=== PATIENT | female | born 1940 | race Caucasian/White ===

== ENCOUNTER → 2018-04-30 16:38 | Outpatient (CLI) | payer MEDICARE, BC, SELFPAY ==
[2018-04-30 17:53] LABS: BUN Creatinine Ratio 18.8 (6-22); Blood Urea Nitrogen 15 mg/dL (7-17); Calcium 9.6 mg/dL (8.4-10.2); Carbon Dioxide 32 mmol/L (22-32); Chloride 96 mmol/L (98-107); Estimated Glomerular Filt Rate > 60.0 mL/min (>60); Glucose 94 mg/dL (80-110); HEMOLYSIS < 15 (0-50); Potassium 4.3 mmol/L (3.4-5.1); Sodium 139 mmol/L (137-145)
== END ==
PROVIDERS: Family Provider Family Medicine; PCP Family Medicine; Visit Provider Family Medicine
DX: I10 Essential (primary) hypertension (principal)
CPT/HCPCS: 36415; 80048

== ENCOUNTER → 2018-05-06 13:43 | Outpatient (CLI) | payer MEDICARE, BC, SELFPAY ==
[2018-05-06 17:09] LABS: Calcium 9.6 mg/dL (8.4-10.2)
[2018-05-08 14:18] LABS: Parathyroid Hormone Int 61 pg/mL (14-64)
== END ==
PROVIDERS: PCP Family Medicine; Visit Provider Family Medicine
DX: E21.3 Hyperparathyroidism, unspecified (principal)
CPT/HCPCS: 36415; 82310; 83970

== ENCOUNTER → 2018-06-21 14:54 | Outpatient (CLI) | payer MEDICARE, BC, SELFPAY ==
--- NOTE | 2018-06-21 | DI.MG.S_ITS ---
BILATERAL DIGITAL SCREENING MAMMOGRAM 3D/2D WITH CAD: 06/21/2018 CLINICAL: Routine screening. Comparison is made to exams dated: 02/12/2017 mammogram, 11/07/2015 mammogram, and 10/26/2013 mammogram - [facility]. The tissue of both breasts is heterogeneously dense. This may lower the sensitivity of mammography. Current study was also evaluated with a Computer Aided Detection (CAD) system. There are benign vascular calcifications in both breasts. No significant masses, calcifications, or other findings are seen in either breast. There has been no significant interval change. IMPRESSION: BENIGN There is no mammographic evidence of malignancy. A 1 year screening mammogram is recommended. This exam was interpreted at Station ID: [id number]. NOTE: For mammograms, a report in lay terms will be sent to the patient. Approximately 15% of breast malignancies will not be visualized mammographically. In the management of a palpable breast mass, a negative mammogram must not discourage biopsy of a clinically suspicious lesion. Electronically Signed By: Enio lim/theodore:06/21/2018 16:54:21 letter sent: Normal Exam ACR BI-RADS Category 2: Benign Finding(s) 3342F
== END ==
PROVIDERS: Family Provider Family Medicine; PCP Family Medicine; Visit Provider Family Medicine
DX: Z12.31 Encounter for screening mammogram for malignant neoplasm of breast (principal)
CPT/HCPCS: 77063; 77067

== ENCOUNTER → 2018-07-09 09:43 | Outpatient (CLI) | payer MEDICARE, BC, SELFPAY ==
--- NOTE | 2018-07-09 11:01 | PM.TREADMILL ---
Cardiac Stress Test Report Referral & Results Date Patient Seen: 07/09/18 Requesting provider: Ramirez Mcdowell Indication: Chest pressure Rest ECG: Unremarkable Procedure Note: Today following both written and verbal informed consent the patient was exercised according to a standard Lukas protocol patient went for a total of 4 min 25 sec achieving a maximum heart rate of 189 maximum systolic blood pressure of 182. This is approximately 7.0 METS. Exercise was terminated at this point because of targets having been met. Patient was also given Cardiolite through a previously started Hep-Lock IV by the prior authorization technician approximately 1 minute prior to the cessation of exercise. Patient was tachycardic throughout likely because she held her metoprolol as directed There are no ST-T segment changes identified Normal blood pressure response Functional aerobic impairment rated 0 on the active scale Impression: No evidence of ischemia based on ECG Perfusion imaging to be reported separately Average exercise capacity Please note: Actual ECG tracings can be found in the PACS system.
--- NOTE | 2018-07-12 16:34 | DI.NM.S_ITS ---
DATE OF SERVICE: 07/09/2018 PROCEDURE: Exercise perfusion study. INDICATIONS: Chest pain, shortness of breath with underlying hypertension, hyperlipidemia. RADIOPHARMACEUTICAL: 24.1 mCi technetium-99m Myoview IV was injected at stress and 24.9 mCi technetium-99m Myoview IV was injected at rest. CARDIAC STRESS: Patient underwent exercise perfusion study under the supervision of an attending staff. She walked on Lukas protocol for 4 minutes 25 seconds achieved 119% of target heart rate, normal blood pressure response, 7 METs of workload and 0% functional aerobic impairment. Baseline rhythm was sinus tachycardia. Peak heart rate was about 172 beats per minute with sinus tachycardia. Some nonspecific EKG changes at baseline. No obvious inducible ischemic changes during stress. No new significant arrhythmias. Patient felt fatigue during stress. RAW DATA: There was some breast shadow seen. GATED STUDY: Stress LV ejection fraction 91 and resting LV ejection fraction 79%. No obvious wall motion abnormalities. TID ratio is 0.62, which is within normal limits. Lung/heart ratio is 0.22, which is within normal limits. MYOCARDIAL PERFUSION SCAN: Stress supine, resting supine, and stress prone images revealed normal myocardial perfusion. CONCLUSION: This is a normal myocardial perfusion study. As far as perfusion study is concerned, this is a low-risk myocardial perfusion scan. Linh Casas - Zonia/ doc#: [id number]/job#: [id number] dd: 07/12/2018 16:17:00 dt: 07/12/2018 16:26:00 DICTATING /COPIES TO: Noemi Dexetr MD COPIES MNE: CHRISTINA
== END ==
PROVIDERS: Family Provider Family Medicine; PCP Family Medicine; Visit Provider Internal Medicine
DX: R07.89 Other chest pain (principal); R00.0 Tachycardia, unspecified; I10 Essential (primary) hypertension
CPT/HCPCS: 78452; 93016; 93017; 93018; A9502

== ENCOUNTER → 2019-02-07 14:16 | Outpatient (CLI) | payer MEDICARE, BC, SELFPAY ==
[2019-02-07 15:22] LABS: Blood Urea Nitrogen 20 mg/dL (7-17); Calcium 9.3 mg/dL (8.4-10.2); Carbon Dioxide 30 mmol/L (22-32); Chloride 98 mmol/L (98-107); Estimated Glomerular Filt Rate > 60.0 mL/min (>60); Glucose 97 mg/dL (80-110); HEMOLYSIS < 15 (0-50); Potassium 4.8 mmol/L (3.4-5.1); Sodium 138 mmol/L (137-145)
== END ==
PROVIDERS: PCP Family Medicine; Visit Provider Family Medicine
DX: I10 Essential (primary) hypertension (principal); Z79.891 Long term (current) use of opiate analgesic
CPT/HCPCS: 36415; 80048

== ENCOUNTER → 2019-09-03 12:11 | Outpatient (CLI) | payer MEDICARE, BC, SELFPAY ==
--- NOTE | 2019-09-03 | DI.MG.S_ITS ---
BILATERAL DIGITAL SCREENING MAMMOGRAM 3D/2D WITH CAD: 09/03/2019 CLINICAL: Routine screening. Comparison is made to exams dated: 06/21/2018 mammogram, 02/12/2017 mammogram, and 11/07/2015 mammogram - [facility]. The tissue of both breasts is heterogeneously dense. This may lower the sensitivity of mammography. Current study was also evaluated with a Computer Aided Detection (CAD) system. There are benign calcifications in both breasts. There also are benign vascular calcifications in both breasts. No significant masses, calcifications, or other findings are seen in either breast. There has been no significant interval change. IMPRESSION: There is no mammographic evidence of malignancy. A 1 year screening mammogram is recommended. This exam was interpreted at Station ID: [id number]. NOTE: For mammograms, a report in lay terms will be sent to the patient. Approximately 15% of breast malignancies will not be visualized mammographically. In the management of a palpable breast mass, a negative mammogram must not discourage biopsy of a clinically suspicious lesion. Electronically Signed By: Milli cedeno/theodore:09/05/2019 08:55:54 letter sent: Normal Exam ACR BI-RADS Category 2: Benign Finding(s) 3342F
== END ==
PROVIDERS: PCP Family Medicine; Visit Provider Family Medicine
DX: Z12.31 Encounter for screening mammogram for malignant neoplasm of breast (principal)
CPT/HCPCS: 77063; 77067

== ENCOUNTER → 2019-11-25 09:43 | Outpatient (CLI) | payer MEDICARE, BC, SELFPAY | PROVIDERS: PCP Family Medicine; Visit Provider Family Medicine | DX: Z13.820 Encounter for screening for osteoporosis (principal); M85.852 Other specified disorders of bone density and structure, left thigh; Z78.0 Asymptomatic menopausal state; E21.3 Hyperparathyroidism, unspecified; Z82.62 Family history of osteoporosis; Z90.722 Acquired absence of ovaries, bilateral | CPT/HCPCS: 77080 ==

== ENCOUNTER → 2021-03-14 08:41 | Outpatient (CLI) | payer MEDICARE, BC, SELFPAY ==
--- NOTE | 2021-03-14 09:23 | DI.RAD.S_ITS ---
PROCEDURE: XR SHOULDER RT MIN 2V INDICATIONS: right shoulder pain TECHNIQUE: 3 views of the shoulder were acquired. COMPARISON: None. FINDINGS: Bones: No fractures or dislocations. No suspicious bony lesions. Visualized ribs appear intact. Soft tissues: No suspicious soft tissue calcifications. IMPRESSION: Unremarkable right shoulder radiographs Dictated by: Jayson Yung M.D. on 03/14/2021 at 11:21 Approved by: Jayson Yung M.D. on 03/14/2021 at 11:33
[2021-03-14 09:47] LABS: Add Manual Diff / Slide Review NO; Basophils Absolute Auto 0 /uL (0-100); Basophils Percent Auto 0.8 % (0-2); Eosinophils Absolute Auto 100 /uL (0-450); Eosinophils Percent Auto 2.2 % (2-4); Hematocrit 39.6 % (36-46); Hemoglobin 13.2 g/dL (12.0-16.0); Lymphocytes Absolute Auto 1200 /uL (1100-4500); Lymphocytes Percent Auto 20.9 % (25-40); Mean Corpuscular HGB Conc 33.2 % (30-36); Mean Corpuscular Hemoglobin 30.4 PG (26-34); Mean Corpuscular Volume 91.5 fL (80-100); Monocytes Absolute Auto 300 /uL (0-900); Monocytes Percent Auto 5.6 % (3-14); Neutrophils Absolute Auto 4200 /uL (1500-7000); Neutrophils Percent Auto 70.5 % (50-75); Platelet Count 275 X10^3/uL (150-400); Red Blood Cell Count 4.33 X10^6/uL (4.0-5.2); Red Cell Distribution Width 14.2 % (11.6-14.8); White Blood Cell Count 5.9 X10^3/uL (4.5-11.0)
[2021-03-14 10:02] LABS: Alanine Aminotransferase 30 IU/L (<35); Albumin 4.4 g/dL (3.5-5.0); Albumin Globulin Ratio 1.5 (1.0-2.8); Alkaline Phosphatase 66 U/L (38-126); Aspartate Aminotransferase 36 IU/L (14-36); Bilirubin Total 0.6 mg/dL (0.2-1.3); Blood Urea Nitrogen 19 mg/dL (7-17); Calcium 9.7 mg/dL (8.4-10.2); Carbon Dioxide 31 mmol/L (22-32); Chloride 101 mmol/L (98-107); Cholesterol 164 mg/dL (140-199); Estimated Glomerular Filt Rate > 60.0 mL/min (>60); Glucose 106 mg/dL (80-110); HDL Cholesterol 77 mg/dL (40-60); HEMOLYSIS < 15 (0-50); LDL Cholesterol Calculated 72 mg/dL (<100); Potassium 3.9 mmol/L (3.4-5.1); Sodium 139 mmol/L (137-145); Total Protein 7.4 g/dL (6.3-8.2); Triglycerides 76 mg/dL (35-150)
== END ==
PROVIDERS: PCP Family Medicine; Referring Provider Family Medicine; Visit Provider Family Medicine
DX: E27.49 Other adrenocortical insufficiency (principal); E78.5 Hyperlipidemia, unspecified; I10 Essential (primary) hypertension; M25.511 Pain in right shoulder
CPT/HCPCS: 36415; 73030; 80053; 80061; 85025

== ENCOUNTER → 2021-09-12 12:40 | Outpatient (CLI) | payer MEDICARE, BC, SELFPAY ==
[2021-09-12 13:23] LABS: Blood Urea Nitrogen 20 mg/dL (7-17); Calcium 9.5 mg/dL (8.4-10.2); Carbon Dioxide 32 mmol/L (22-32); Chloride 98 mmol/L (98-107); Estimated Glomerular Filt Rate > 60.0 mL/min (>60); Glucose 107 mg/dL (80-110); HEMOLYSIS < 15 (0-50); Potassium 4.3 mmol/L (3.4-5.1); Sodium 138 mmol/L (137-145)
== END ==
PROVIDERS: PCP Family Medicine; Referring Provider Family Medicine; Visit Provider Family Medicine
DX: E27.49 Other adrenocortical insufficiency (principal)
CPT/HCPCS: 36415; 80048

== ENCOUNTER → 2021-12-25 08:32 | Outpatient (CLI) | payer MEDICARE, BC, SELFPAY ==
[2021-12-25 09:05] LABS: Appearance Urine UA CLEAR; Bilirubin Urine UA NEGATIVE (NEGATIVE); Color Urine UA YELLOW; Glucose Urine UA NEGATIVE (Negative); Ketones Urine UA NEGATIVE (NEGATIVE); Leukocyte Esterase Urine UA TRACE (NEGATIVE); Nitrite Urine UA NEGATIVE (Negative); Occult Blood Urine UA TRACE-INTACT (Negative); Protein Urine UA NEGATIVE (Negative); Urobilinogen Urine UA 0.2 E.U./dL (0.2)
[2021-12-25 09:13] LABS: Add Manual Diff / Slide Review NO; Basophils Absolute Auto 0 /uL (0-100); Basophils Percent Auto 0.8 % (0-2); Eosinophils Absolute Auto 200 /uL (0-450); Eosinophils Percent Auto 2.8 % (2-4); Hematocrit 38.6 % (36-46); Hemoglobin 12.9 g/dL (12.0-16.0); Lymphocytes Absolute Auto 1600 /uL (1100-4500); Lymphocytes Percent Auto 28.4 % (25-40); Mean Corpuscular HGB Conc 33.3 % (30-36); Mean Corpuscular Hemoglobin 30.6 PG (26-34); Monocytes Absolute Auto 400 /uL (0-900); Neutrophils Absolute Auto 3400 /uL (1500-7000); Platelet Count 328 X10^3/uL (150-400); Red Cell Distribution Width 14.1 % (11.6-14.8); White Blood Cell Count 5.6 X10^3/uL (4.5-11.0)
[2021-12-25 09:17] LABS: Bacteria Urine Occasional (0-1); Culture Indicated Urine Specimen Cultured; RBC Urine 0-1/HPF (0-5/HPF); WBC Urine 0-1/HPF (0-5/HPF)
[2021-12-25 09:30] LABS: Albumin 4.5 g/dL (3.5-5.0); BUN Creatinine Ratio 24.7 (6-22); Blood Urea Nitrogen 19 mg/dL (7-17); Calcium 9.6 mg/dL (8.4-10.2); Carbon Dioxide 35 mmol/L (22-32); Chloride 100 mmol/L (98-107); Estimated Glomerular Filt Rate > 60.0 mL/min (>60); Glucose 104 mg/dL (80-110); HEMOLYSIS < 15 (0-50); Phosphorous 3.5 mg/dL (2.8-4.1); Potassium 4.5 mmol/L (3.4-5.1); Sodium 137 mmol/L (137-145)
[2021-12-25 09:55] LABS: Creatinine Urine Random 51.4 mg/dL; Protein (Total) Urine Random 14 mg/dL (0-12); Protein Creatinine Ratio Urine 0.27 GRAM/24H
[2021-12-25 10:00] LABS: Microalbumi Creatinin Ratio Ur 40.8 ug/mg CR (<30); Microalbumin Urine Random 2.1 mg/dL (0-1.6)
== END ==
PROVIDERS: PCP Family Medicine; Referring Provider Internal Medicine Nephrology; Visit Provider Internal Medicine Nephrology
DX: I10 Essential (primary) hypertension (principal)
CPT/HCPCS: 36415; 80069; 81001; 82043; 82570; 84156; 85025; 87086

== ENCOUNTER → 2022-01-29 12:30 | Outpatient (CLI) | payer MEDICARE, BC, SELFPAY ==
[2022-01-29 14:30] LABS: Hematocrit 37.9 % (36-46); Hemoglobin 12.8 g/dL (12.0-16.0)
[2022-01-29 15:07] LABS: BUN Creatinine Ratio 21.8 (6-22); Blood Urea Nitrogen 17 mg/dL (7-17); Calcium 9.5 mg/dL (8.4-10.2); Carbon Dioxide 34 mmol/L (22-32); Chloride 94 mmol/L (98-107); Estimated Glomerular Filt Rate > 60.0 mL/min (>60); Glucose 94 mg/dL (80-110); HEMOLYSIS < 15 (0-50); Magnesium 2.1 mg/dL (1.6-2.3); Potassium 3.8 mmol/L (3.4-5.1); Sodium 134 mmol/L (137-145)
[2022-01-29 16:09] LABS: Creatinine Urine Random 51.6 mg/dL; Protein (Total) Urine Random 9 mg/dL (0-12); Protein Creatinine Ratio Urine 0.17 GRAM/24H
== END ==
PROVIDERS: PCP Family Medicine; Referring Provider Internal Medicine Nephrology; Visit Provider Internal Medicine Nephrology
DX: I10 Essential (primary) hypertension (principal)
CPT/HCPCS: 36415; 80048; 82570; 83735; 84156; 85014; 85018

== ENCOUNTER → 2022-02-18 10:38 | Outpatient (CLI) | payer MEDICARE, BC, SELFPAY ==
[2022-02-18 13:14] LABS: BUN Creatinine Ratio 19.4 (6-22); Blood Urea Nitrogen 14 mg/dL (7-17); Calcium 9.3 mg/dL (8.4-10.2); Carbon Dioxide 33 mmol/L (22-32); Chloride 96 mmol/L (98-107); Estimated Glomerular Filt Rate > 60.0 mL/min (>60); Glucose 90 mg/dL (80-110); HEMOLYSIS < 15 (0-50); Potassium 3.5 mmol/L (3.4-5.1); Sodium 134 mmol/L (137-145)
== END ==
PROVIDERS: PCP Family Medicine; Referring Provider Internal Medicine Nephrology; Visit Provider Internal Medicine Nephrology
DX: I10 Essential (primary) hypertension (principal)
CPT/HCPCS: 36415; 80048

== ENCOUNTER → 2022-07-04 11:22 | Outpatient (CLI) | payer MEDICARE, BC, SELFPAY ==
[2022-07-04 12:01] LABS: Add Manual Diff / Slide Review NO; Basophils Absolute Auto 0 /uL (0-100); Basophils Percent Auto 0.8 % (0-2); Eosinophils Absolute Auto 0 /uL (0-450); Eosinophils Percent Auto 0.3 % (2-4); Hemoglobin 12.5 g/dL (12.0-16.0); Lymphocytes Absolute Auto 700 /uL (1100-4500); Lymphocytes Percent Auto 12.3 % (25-40); Mean Corpuscular HGB Conc 33.7 % (30-36); Mean Corpuscular Hemoglobin 30.8 PG (26-34); Mean Corpuscular Volume 91.2 fL (80-100); Monocytes Absolute Auto 300 /uL (0-900); Monocytes Percent Auto 5.7 % (3-14); Neutrophils Absolute Auto 4500 /uL (1500-7000); Neutrophils Percent Auto 80.9 % (50-75); Platelet Count 399 X10^3/uL (150-400); Red Blood Cell Count 4.06 X10^6/uL (4.0-5.2); White Blood Cell Count 5.5 X10^3/uL (4.5-11.0)
[2022-07-04 13:06] LABS: Alanine Aminotransferase 23 IU/L (<35); Albumin 4.5 g/dL (3.5-5.0); Albumin Globulin Ratio 1.8 (1.0-2.8); Alkaline Phosphatase 63 U/L (38-126); Aspartate Aminotransferase 29 IU/L (14-36); BUN Creatinine Ratio 17.1 (6-22); Bilirubin Total 0.6 mg/dL (0.2-1.3); Blood Urea Nitrogen 13 mg/dL (7-17); Calcium 9.4 mg/dL (8.4-10.2); Carbon Dioxide 33 mmol/L (22-32); Chloride 92 mmol/L (98-107); Cholesterol 170 mg/dL (140-199); Estimated Glomerular Filt Rate > 60 mL/min (>60); Globulin 2.5 g/dL (1.7-4.1); Glucose 89 mg/dL (80-110); HDL Cholesterol 107 mg/dL (40-60); HEMOLYSIS < 15 (0-50); LDL Cholesterol Calculated 53 mg/dL (<100); Potassium 3.9 mmol/L (3.4-5.1); Sodium 132 mmol/L (137-145); Triglycerides 50 mg/dL (35-150)
== END ==
PROVIDERS: PCP Family Medicine; Referring Provider Family Medicine; Visit Provider Family Medicine
DX: R07.9 Chest pain, unspecified (principal)
CPT/HCPCS: 36415; 80053; 80061; 85025

== ENCOUNTER → 2022-07-17 09:48 | Outpatient (CLI) | payer MEDICARE, BC, SELFPAY ==
--- NOTE | 2022-07-17 09:50 | DI.NM.S_ITS ---
PROCEDURE: NM ROZINA PERF SPECT REST & STR Rest and exercise myocardial perfusion SPECT with gated imaging and ejection fraction RADIOPHARMACEUTICAL: 12.3 mCi Tc-99m sestamibi IV at rest and 24.7 mCi Tc-99m sestamibi IV at peak exercise. A 9-ier-exyrgfim was performed. INDICATIONS: Chest pain,pressure, HTN TECHNIQUE: Radiopharmaceutical was injected at peak stress test, and also at rest. SPECT images were obtained. SPECT myocardial perfusion images were displayed in short axis, horizontal long axis, and vertical long axis views. Gated images were reviewed using [employer] software. COMPARISON: None. CARDIAC STRESS: A standard Lukas treadmill exercise tolerance test was performed by the patient under the supervision of an attending staff. The patient exercised for 5 minutes and 05 seconds; 7.0 METS; functional aerobic impairment (LEONOR) is -5% %. Hemodynamic data: There is normal blood pressure and heart rate response to exercise stress. Patient achieved 121% of maximum predicted heart rate at peak exercise. Symptoms: Patient denied chest pain during exercise. EKG: No diagnostic EKG changes of ischemia; no ectopy. FINDINGS: Raw data: There is good myocardial labeling by radiotracer. No significant motion artifacts. Kukb-jt-ghava ratio is 0.49 (normal is less than 0.38 for sestamibi tracer, and less than 0.50 for thallium tracer). Left ventricle function: Gated images demonstrate normal left ventricle wall thickening. No segmental wall motion abnormality. No transient ischemic dilation; TID is 0.92 (normal less than 1.3). The left ventricle resting end-diastolic volume is 74 mL. Left ventricle stress ejection fraction is >75%; normal values are above 45%. Myocardial perfusion: There is normal distribution of activity in the left and right ventricular myocardium. No fixed or reversible perfusion defects. IMPRESSION: Low risk study. No evidence of exercise-induced ischemia on ECG or SPECT imaging. Fair exercise capacity. Hyperdynamic left ventricular function. Dictated by: Maribeth Ty D.O. on 07/18/2022 at 16:46 Approved by: aMribeth Ty D.O. on 07/18/2022 at 16:50
[2022-07-17 11:13] LABS: COVID19 -Nasal RAPID Negative (Negative)
--- NOTE | 2022-07-17 14:38 | PM.TREADMILL ---
Cardiac Stress Test Report Referral & Results Date Patient Seen: 07/17/22 Requesting provider: Sherron Brown Indication: Chest discomfort Rest ECG: Unremarkable, maybe minimally tachycardic Procedure Note: Today following both written and verbal informed consent the patient was exercised according to a standard Lukas protocol patient went for a total of 5 minutes 5 seconds achieving a maximum heart rate of 169 maximum systolic blood pressure of 176. This is approximately 7.0 METS. Exercise was terminated at this point because of targets were met. Patient was also given Cardiolite through a previously started Hep-Lock IV by the diagnostic imaging staff approximately 1 minute prior to the cessation of exercise. Patient was somewhat tachycardic throughout likely secondary to the temporary discontinuation of her beta-arleen therapy. There were no symptoms associated with this. No ST-T segment changes Functional aerobic impairment rates about-5% on the active scale or 105% of normal Occasional PAC noticed mostly in recovery Impression: No evidence of ischemia. Better than average exercise capacity. Please see perfusion imaging report as well for details regarding possible ischemia Mild tachycardia likely related to interruption of beta-arleen therapy Please note: Actual ECG tracings can be found in the PACS system.
== END ==
PROVIDERS: PCP Family Medicine; Referring Provider Family Medicine; Visit Provider Family Medicine
DX: R07.89 Other chest pain (principal); I10 Essential (primary) hypertension; Z20.822 Contact with and (suspected) exposure to COVID-19
CPT/HCPCS: 78452; 87635; 93016; 93017; 93018; A9502

== ENCOUNTER → 2022-12-23 11:50 | Outpatient (CLI) | payer MEDICARE, BC, SELFPAY ==
--- NOTE | 2022-12-23 11:52 | DI.RAD.S_ITS ---
PROCEDURE: XR THORACIC SPINE 3V INDICATIONS: known disc disease, pain TECHNIQUE: 3 views of the thoracic spine were acquired. COMPARISON: None. FINDINGS: Bones: No fractures or dislocations. No suspicious bony lesions. Convex left scoliosis of the visualized lumbar spine. Moderate degenerative disc changes noted throughout the thoracic spine. Moderate lower and moderate midthoracic spine facet hypertrophy. 12 pairs of ribs are noted, and appear intact where visualized. Soft tissues: No paravertebral stripe thickening. IMPRESSION: 1. Multilevel degenerative disc disease. 2. Multilevel facet arthropathy. 3. No fracture. No acute osseous lesion. If symptoms and/or clinical suspicion for pathology persists, evaluation with MRI should be considered for further assessment. Dictated by: Mile Rendon MD, PhD on 12/23/2022 at 13:18 Approved by: Mile Rendon MD, PhD on 12/23/2022 at 13:19
--- NOTE | 2022-12-23 11:52 | DI.RAD.S_ITS ---
PROCEDURE: XR LUMBAR SPINE 2-3V INDICATIONS: known disc disease, pain TECHNIQUE: 3 views of the lumbar spine were acquired. COMPARISON: None. FINDINGS: Bones: 5 mnv-rfs-gtsvqzl vertebrae are present. There is grade 1 L5-S1 anterolisthesis. There is convex left scoliosis. Moderate degenerative disc changes noted throughout the lumbar spine. Moderate facet hypertrophy noted throughout the lumbar spine. No vertebral body compression fractures. No suspicious bony lesions. Soft tissues: Overlying bowel gas pattern is normal. No suspicious soft tissue calcifications. IMPRESSION: 1. Multilevel degenerative disc disease. 2. Multilevel facet arthropathy. 3. No fracture. No acute osseous lesion. If symptoms and/or clinical suspicion for pathology persists, evaluation with MRI should be considered for further assessment. Dictated by: Mlie Rendon MD, PhD on 12/23/2022 at 13:17 Approved by: Mile Rendon MD, PhD on 12/23/2022 at 13:18
== END ==
PROVIDERS: PCP Family Medicine; Referring Provider Family Medicine; Visit Provider Family Medicine
DX: M51.36 Other intervertebral disc degeneration, lumbar region (principal); M51.34 Other intervertebral disc degeneration, thoracic region; M47.816 Spondylosis without myelopathy or radiculopathy, lumbar region; M47.814 Spondylosis without myelopathy or radiculopathy, thoracic region; M54.9 Dorsalgia, unspecified
CPT/HCPCS: 72072; 72100

== ENCOUNTER → 2023-04-01 12:06 | Outpatient (CLI) | payer MEDICARE, BC, SELFPAY ==
[2023-04-01 13:00] LABS: COVID-19 CEPHEID 4-PLEX PCR Negative (Negative); Influenza A - CEPHEID Flu A NEGATIVE (NEGATIVE); Influenza B - CEPHEID Flu B NEGATIVE (NEGATIVE); Respiratory Syncytial Virus Negative (Negative)
== END ==
PROVIDERS: PCP Family Medicine; Visit Provider Physician Assistant
DX: R05.1 Acute cough (principal); R09.89 Other specified symptoms and signs involving the circulatory and respiratory systems; R53.83 Other fatigue
CPT/HCPCS: 0241U

== ENCOUNTER → 2023-04-20 11:20 | Outpatient (CLI) | payer MEDICARE, BC, SELFPAY ==
[2023-04-20 13:22] LABS: BUN Creatinine Ratio 17.8 (6-22); Blood Urea Nitrogen 13 mg/dL (7-17); Calcium 9.4 mg/dL (8.4-10.2); Carbon Dioxide 33 mmol/L (22-32); Chloride 92 mmol/L (98-107); Estimated Glomerular Filt Rate > 60 mL/min (>60); Glucose 111 mg/dL (80-110); HEMOLYSIS < 15 (0-50); Potassium 4.3 mmol/L (3.4-5.1); Sodium 132 mmol/L (137-145)
[2023-04-21 10:55] LABS: Creatinine Urine Random 19.1 mg/dL; Protein (Total) Urine Random 12 mg/dL (0-12); Protein Creatinine Ratio Urine 0.62 GRAM/24H
== END ==
PROVIDERS: PCP Family Medicine; Referring Provider Internal Medicine Nephrology; Visit Provider Internal Medicine Nephrology
DX: I10 Essential (primary) hypertension (principal)
CPT/HCPCS: 36415; 80048; 82570; 84156

== ENCOUNTER 2023-07-23 07:30 | Emergency (ER) | payer MEDICARE, BC, SELFPAY ==
[2023-07-23] VITALS (15 sets, daily range): BP systolic 152–188; BP diastolic 63–81; PULSE 76–87; RESP 12–22; TEMP 37.6; O2SAT 98–100; BMI 20.5
--- NOTE | 2023-07-23 07:43 | ED.GENADULT ---
HPI - General Adult General Chief complaint: Chest Pain Stated complaint: chest pain, nausea, severe headache Time Seen by Provider: 07/23/23 07:32 History of Present Illness HPI narrative: 82-year-old female with history of hypertension presents by private vehicle from home for generalized body aches, nausea, headache. Patient went to bed in her usual state of health and woke up with symptoms. She states that she also had 3 episodes of loose stools, which is unusual for her. Unknown sick contacts. No medications taken prior to arrival. When specifically asked about chest pain patient does endorse chest pain, however her main concern is her body pain, headache, and nausea. Related Data Home Medications Medication Instructions Recorded Confirmed aspirin 81 mg tablet,delayed 81 mg PO QDAY ##0 09/11/17 06/18/23 release acetaminophen 500 mg capsule 500 mg PO Q6H PRN 08/12/18 06/18/23 cetirizine 10 mg tablet (Zyrtec) 10 mg PO DAILY PRN allergy symptoms 06/18/23 06/18/23 Previous Rx's Medication Instructions Recorded chlorthalidone 25 mg tablet 25 mg PO .QOD #30 tabs 07/04/22 olmesartan 20 mg tablet 20 mg PO DAILY #30 tabs 07/04/22 simvastatin 40 mg tablet See Rx Instructions .Route 08/19/22 .COMPLEX #90 tabs omeprazole 20 mg capsule,delayed See Rx Instructions .Route 11/25/22 release .COMPLEX #180 caps fludrocortisone 0.1 mg tablet See Rx Instructions .Route 04/09/23 .COMPLEX #23 tabs hydrocodone 7.5 mg-acetaminophen 1 tab PO HS #30 tabs 06/18/23 325 mg tablet amlodipine 5 mg tablet 5 mg PO DAILY #30 tabs 07/23/23 hydrocodone 7.5 mg-acetaminophen 1 tab PO BEDTIME PRN pain #14 tabs 07/23/23 325 mg tablet Allergies Allergy/AdvReac Type Severity Reaction Status Date / Time amlodipine Allergy Mild SWELLING Verified 04/01/23 11:30 IN LEGS codeine [CODEINE] Allergy Mild confusion Verified 04/01/23 11:30 sucralfate AdvReac Intermediate vomiting,na Verified 04/01/23 11:30 usea Anesthetics - Amide Type - AdvReac Mild VOMITING Verified 04/01/23 11:30 Select A [Anesthetics - Amide Type] Anesthetics - Ingrid Type- AdvReac Mild VOMITING Verified 04/01/23 11:30 Parabens [Anesthetics - Ingrid Type] diphtheria,pertussis AdvReac FEVER, Verified 04/01/23 11:30 (acellular),te CHILLS, [From Adacel(Tdap DIARRHEA, Adolesn/Adult)(PF)] TERRIBLE HEADACHE Review of Systems Review of Systems Narrative: CONSTITUTIONAL-reports: Malaise Denies: fever, chills HEENT- Denies: sore throat, nosebleed, vision changes RESPIRATORY- Denies: shortness of breath, cough, wheezing CARDIAC- Denies: chest pain, edema, orthopnea GI-reports: Nausea, diarrhea Denies: abdominal pain, vomiting, constipation - Denies: frequency, dysuria, hematuria, flank pain MSK- Denies: extremity pain, extremity swelling, joint pain, joint swelling SKIN- Denies: rash, itching, burn, swelling NEUROLOGICAL-reports: Headache Denies: numbness, weakness, dizziness PSYCHIATRIC- Denies: anxiety, depression, suicidal ideation, homicidal ideation Patient History Medical History (Updated 07/23/23 @ 09:27 by Sumi Adam MD) Adrenal insufficiency Arthritis, climacteric, multiple joints Chicken pox (1947) Chronic back pain (1984) Fibromyalgia (1984) Hayfever (1965) Hearing loss (2009) Hemorrhoids (1964) Hyperlipidemia Hyperparathyroidism (02/11/16) Hyperparathyroidism (2013) Hypertension (1984) Hyperthyroidism (2013) Hyporeninemic hypoaldosteronism Lumbosacral radiculopathy due to degenerative joint disease of spine (2015) Measles (1948) Migraines (1953) Osteopenia (2005) Osteoporosis Surgical History Anesthesia complication H/O parathyroidectomy (~2013) History of eye surgery (2007) History of eye surgery (2006) Status post hysterectomy (1981) Family History Brother Age: 61 Heart disease Father Hypertension High cholesterol Mother Mental health problem Osteopenia Alzheimer's disease Sister Age: 79 Heart disease High cholesterol Osteopenia Heart valve problem Grandfather No problems noted. Grandmother No problems noted. Grandfather No problems noted. Grandmother MVA (motor vehicle accident) Sister History of back problems Sister History of back problems Social History marital status: household members: spouse lives independently: Yes education level: college occupational status: other Smoking Status: Never smoker alcohol intake: never substance use type: does not use Smoking Status: Never smoker Exam Narrative Exam Narrative: Const: Well-nourished, Well-developed, appears stated age Eyes: PERRL, EOMI, conjunctiva normal ENT: Atraumatic, dentition normal, mucous membranes moist Cardiac: regular rate, regular rhythm RESP: unlabored, clear bilaterally, no wheezing GI: Atraumatic, nontender, nondistended, no rebound, no guarding MSK: Atraumatic, full range of motion, pulses equal Skin: Warm, Dry, intact, no rashes Neuro: AO x3, CN II-XII grossly intact, moves all extremities Psych: affect normal, mood normal, not suicidal, not homicidal Initial Vital Signs Initial Vital Signs: Vital Signs Pulse Rate 87 07/23/23 07:37 Respiratory Rate 12 07/23/23 07:37 Pulse Oximetry 98 07/23/23 07:37 Course Course Course Narrative: Nontoxic appearing patient with generalized symptoms. Does endorse chest pain, however her main concern is her body pain and nausea. Hemodynamically stable, initially hypertensive, however patient endorses she has not taken her morning medications and after allowing to rest in the emergency department her blood pressure normalized. Orders Ordered: ED Orders 07/23/23 07:40 COVID19 -Nasal RAPID Stat 07/23/23 07:41 EKG-12 Lead Stat 07/23/23 07:49 Chest [XR chest 1V] Stat 07/23/23 07:55 CBC Auto Diff [Complete Blood Count AUTO DIFF] Stat CMP [Comprehensive Metabolic Panel] Stat Lipase Stat Trop I [Troponin I] Stat Discontinued Medications Acetaminophen/Butalbital/Caffeine (Butalb/Apap/Caffeine 50/325/40 Tablet) 1 each PO NOW ONE Stop: 07/23/23 08:15 Last Admin: 07/23/23 08:56 Dose: 1 each Documented By: JON Sodium Chloride (Normal Saline 0.9%) 1,000 mls @ 1,000 mls/hr IV BOLUS PRN PRN Reason: Fluid replacement Last Admin: 07/23/23 09:05 Dose: 1,000 mls/hr Documented By: JON Ondansetron HCl (Ondansetron 4 Mg/2 Ml Inj) 4 mg IV NOW ONE Stop: 07/23/23 07:39 Last Admin: 07/23/23 08:08 Dose: 4 mg Documented By: JON Reevaluation(s) Reevaluation #1: Laboratory work is significant for mild hyponatremia. Patient's baseline appears to be 132, today it is 127. Patient does take chlorthalidone which could be contributory to her hyponatremia. Patient positive for COVID-19. EKG is normal sinus rhythm without ischemic findings, troponin undetectable. Chest x-ray shows chronic findings. Patient informed of her lab and imaging results. She was informed of her COVID positive status and her hyponatremia. Patient is pending replacement of her primary care physician, in the interim I recommended that she with hold her chlorthalidone until following up with the primary care physician. We will change to amlodipine. Patient counseled that she may take Tylenol and Motrin as needed for her symptoms and she was advised to make sure she drinks plenty of fluids in order to stay hydrated. Patient also requested a short refill of her pain medications, her usual pharmacy [facility] has reported a shortage and recommended that she go to a clinic to see if a provider would order her a refill. ED return precautions discussed. Patient expressed understanding of the plan and is in agreement at this time. All questions answered at the time of discharge. Vital Signs Vital signs: Vital Signs - 8 hr 07/23/23 07:40 07/23/23 07:37 07/23/23 07:50 Temperature 99.7 F H Pulse Rate 78 87 Respiratory Rate 18 12 Blood Pressure 188/79 H 188/79 H Pulse Oximetry 99 98 Oxygen Delivery Method Room Air 07/23/23 07:50 07/23/23 08:00 07/23/23 08:00 Temperature Pulse Rate 80 79 Respiratory Rate 18 20 Blood Pressure 188/81 H Pulse Oximetry 100 98 Oxygen Delivery Method 07/23/23 08:10 07/23/23 08:10 07/23/23 08:20 Temperature Pulse Rate 81 79 Respiratory Rate 22 15 Blood Pressure 174/76 H Pulse Oximetry 99 99 Oxygen Delivery Method 07/23/23 08:20 07/23/23 08:30 07/23/23 08:30 Temperature Pulse Rate 78 Respiratory Rate 15 Blood Pressure 162/63 H 171/77 H Pulse Oximetry 99 Oxygen Delivery Method 07/23/23 08:40 07/23/23 08:40 07/23/23 08:50 Temperature Pulse Rate 82 Respiratory Rate 15 Blood Pressure 164/66 H 156/70 H Pulse Oximetry 99 Oxygen Delivery Method 07/23/23 08:50 07/23/23 09:00 07/23/23 09:00 Temperature Pulse Rate 79 76 Respiratory Rate 15 18 Blood Pressure 152/70 H Pulse Oximetry 99 98 Oxygen Delivery Method 07/23/23 09:10 07/23/23 09:10 07/23/23 09:20 Temperature Pulse Rate 80 Respiratory Rate 17 Blood Pressure 156/72 H 167/76 H Pulse Oximetry 99 Oxygen Delivery Method 07/23/23 09:20 07/23/23 09:30 07/23/23 09:30 Temperature Pulse Rate 78 78 Respiratory Rate 21 12 Blood Pressure 167/65 H Pulse Oximetry 99 99 Oxygen Delivery Method 07/23/23 09:40 07/23/23 09:40 07/23/23 09:50 Temperature Pulse Rate 78 Respiratory Rate 15 Blood Pressure 167/72 H 171/77 H Pulse Oximetry 99 Oxygen Delivery Method 07/23/23 09:50 Temperature Pulse Rate 76 Respiratory Rate 18 Blood Pressure Pulse Oximetry 100 Oxygen Delivery Method Medical Decision Making Differential Diagnosis Differential Diagnosis: Viral syndrome, gastroenteritis, electrolyte imbalance Lab Data 07/23/23 07:55 07/23/23 07:55 Labs: Lab Results 07/23/23 07/23/23 07/23/23 Range/Units 07:40 07:55 07:55 WBC 3.5 L (4.5-11.0) X10^3/uL RBC 3.88 L (4.0-5.2) X10^6/uL Hgb 12.3 (12.0-16.0) g/dL Hct 35.4 L (36-46) % MCV 91.2 (80-100) fL MCH 31.8 (26-34) PG MCHC 34.8 (30-36) % RDW 13.5 (11.6-14.8) % Plt Count 281 (150-400) X10^3/uL Neut % (Auto) 74.7 (50-75) % Lymph % (Auto) 13.9 L (25-40) % Davison % (Auto) 10.3 (3-14) % Eos % (Auto) 0.4 L (2-4) % Baso % (Auto) 0.7 (0-2) % Neut # (Auto) 2700 (5376-0750) /uL Lymph # (Auto) 500 L (5364-6714) /uL Davison # (Auto) 400 (0-900) /uL Eos # (Auto) 0 (0-450) /uL Baso # (Auto) 0 (0-100) /uL Sodium 127 L (137-145) mmol/L Potassium 3.3 L (3.4-5.1) mmol/L Chloride 89 L (98-107) mmol/L Carbon Dioxide 29 (22-32) mmol/L BUN 10 (7-17) mg/dL Creatinine 0.65 (0.52-1.04) mg/dL Estimated GFR > 60 (>60) mL/min BUN/Creatinine Ratio 15.4 (6-22) Glucose 112 H (80-110) mg/dL Calcium 9.0 (8.4-10.2) mg/dL Total Bilirubin 0.4 (0.2-1.3) mg/dL AST 36 (14-36) IU/L ALT 26 (<35) IU/L Alkaline Phosphatase 68 (38-126) U/L Troponin I < 0.012 (0.01-0.034) ng/mL Total Protein 7.2 (6.3-8.2) g/dL Albumin 4.5 (3.5-5.0) g/dL Globulin 2.7 (1.7-4.1) g/dL Albumin/Globulin Ratio 1.7 (1.0-2.8) Lipase 113 (23-300) U/L SARS-CoV-2 (PCR) Positive H (Negative) Discharge Plan Departure Patient Disposition: Home Clinical Impression: COVID, Myalgia, Nausea, Hyponatremia Instructions: DI for Hyponatremia, COVID-19 Activity Restrictions/Additional Instructions: Stop taking your chlorthalidone. Your blood pressure medication has been changed to amlodipine. You may take this with olmesartan. Please follow-up with your primary care physician. If you feel worse please return to the emergency department for repeat evaluation. Prescriptions: New amlodipine 5 mg tablet 5 mg PO DAILY Qty: 30 0RF hydrocodone-acetaminophen 7.5-325 mg tablet 1 tab PO BEDTIME PRN (Reason: pain) Qty: 14 0RF No Action olmesartan 20 mg tablet 20 mg PO DAILY Qty: 30 0RF chlorthalidone 25 mg tablet 25 mg PO .QOD Qty: 30 0RF cetirizine [Zyrtec] 10 mg tablet 10 mg PO DAILY PRN (Reason: allergy symptoms) hydrocodone-acetaminophen 7.5-325 mg tablet 1 tab PO HS Qty: 30 0RF aspirin 81 MG tablet,delayed release (DR/EC) 81 mg PO QDAY Qty: 0 simvastatin 40 mg tablet See Rx Instructions .ROUTE .COMPLEX Qty: 90 3RF Dose Instruction: TAKE 1 TABLET BY MOUTH EVERY DAY Rx Instructions: TAKE 1 TABLET BY MOUTH EVERY DAY omeprazole 20 mg capsule,delayed release(DR/EC) See Rx Instructions .ROUTE .COMPLEX Qty: 180 3RF Dose Instruction: TAKE 1 CAPSULE BY MOUTH TWICE DAILY Rx Instructions: TAKE 1 CAPSULE BY MOUTH TWICE DAILY fludrocortisone 0.1 mg tablet See Rx Instructions .ROUTE .COMPLEX Qty: 23 3RF Dose Instruction: TAKE ONE-HALF TABLET BY MOUTH EVERY OTHER DAY Rx Instructions: TAKE ONE-HALF TABLET BY MOUTH EVERY OTHER DAY acetaminophen 500 mg capsule 500 mg PO Q6H PRN Referrals: Sherron Brown DO [Primary Care Provider] - Stand Alone Forms: Patient Portal/API
--- NOTE | 2023-07-23 07:49 | DI.RAD.S_ITS ---
PROCEDURE: XR CHEST 1V INDICATIONS: CHEST PAIN TECHNIQUE: One view of the chest was acquired. COMPARISON: None. FINDINGS: Surgical changes and devices: None. Lungs and pleura: Lungs are clear. No pneumothorax. Minimal blunting of the bilateral costophrenic angles may represent pleural thickening/scarring versus small bilateral pleural effusions. Mediastinum: Mediastinal contours appear normal. Heart size is normal. Bones and chest wall: No suspicious bony lesions. Overlying soft tissues appear unremarkable. IMPRESSION: Minimal blunting of the bilateral costophrenic angles which may represent pleural thickening/scarring or small pleural effusions. Otherwise, no acute cardiopulmonary abnormalities. No focal consolidation. Dictated by: Jaret Roque M.D. on 07/23/2023 at 8:29 Approved by: Jaret Roque M.D. on 07/23/2023 at 8:31
[2023-07-23 07:58] LABS: COVID19 -Nasal RAPID POSITIVE (Negative)
[2023-07-23] MEDS: ONDANSETRON 4 MG/2 ML INJ IV (08:08)
[2023-07-23 08:28] LABS: Add Manual Diff / Slide Review NO; Basophils Absolute Auto 0 /uL (0-100); Basophils Percent Auto 0.7 % (0-2); Eosinophils Absolute Auto 0 /uL (0-450); Eosinophils Percent Auto 0.4 % (2-4); Hematocrit 35.4 % (36-46); Hemoglobin 12.3 g/dL (12.0-16.0); Lymphocytes Absolute Auto 500 /uL (1100-4500); Lymphocytes Percent Auto 13.9 % (25-40); Mean Corpuscular HGB Conc 34.8 % (30-36); Mean Corpuscular Hemoglobin 31.8 PG (26-34); Mean Corpuscular Volume 91.2 fL (80-100); Monocytes Absolute Auto 400 /uL (0-900); Monocytes Percent Auto 10.3 % (3-14); Neutrophils Absolute Auto 2700 /uL (1500-7000); Neutrophils Percent Auto 74.7 % (50-75); Platelet Count 281 X10^3/uL (150-400); Red Blood Cell Count 3.88 X10^6/uL (4.0-5.2); Red Cell Distribution Width 13.5 % (11.6-14.8); White Blood Cell Count 3.5 X10^3/uL (4.5-11.0)
[2023-07-23 08:45] LABS: Alanine Aminotransferase 26 IU/L (<35); Albumin 4.5 g/dL (3.5-5.0); Albumin Globulin Ratio 1.7 (1.0-2.8); Alkaline Phosphatase 68 U/L (38-126); Aspartate Aminotransferase 36 IU/L (14-36); BUN Creatinine Ratio 15.4 (6-22); Bilirubin Total 0.4 mg/dL (0.2-1.3); Blood Urea Nitrogen 10 mg/dL (7-17); Carbon Dioxide 29 mmol/L (22-32); Chloride 89 mmol/L (98-107); Estimated Glomerular Filt Rate > 60 mL/min (>60); Globulin 2.7 g/dL (1.7-4.1); Glucose 112 mg/dL (80-110); HEMOLYSIS < 15 (0-50); Lipase 113 U/L (23-300); Potassium 3.3 mmol/L (3.4-5.1); Sodium 127 mmol/L (137-145); Total Protein 7.2 g/dL (6.3-8.2)
[2023-07-23 08:56] LABS: Troponin I < 0.012 ng/mL (0.01-0.034)
[2023-07-23] MEDS: BUTALB/APAP/CAFFEINE 50/325/40 TABLET 1 EACH PO (08:56)
[2023-07-23] MEDS: SODIUM CHLORIDE 0.9% 1,000 ML 1000 ML IV (09:05)
== END 2023-07-23 10:05 | disposition home or self-care (01) ==
PROVIDERS: Emergency Provider Emergency Medicine; PCP Family Medicine
DX: U07.1 COVID-19 (principal); R11.0 Nausea; E87.1 Hypo-osmolality and hyponatremia; R07.9 Chest pain, unspecified
CPT/HCPCS: 71045; 80053; 83690; 84484; 85025; 87635; 93005; 96374; 99284; C9803; J2405

== ENCOUNTER → 2023-08-31 12:52 | Outpatient (CLI) | payer MEDICARE, BC, SELFPAY ==
[2023-08-31 14:29] LABS: Add Manual Diff / Slide Review NO; Basophils Absolute Auto 0 /uL (0-100); Basophils Percent Auto 0.6 % (0-2); Eosinophils Absolute Auto 0 /uL (0-450); Eosinophils Percent Auto 0.3 % (2-4); Hematocrit 38.9 % (36-46); Lymphocytes Absolute Auto 900 /uL (1100-4500); Mean Corpuscular HGB Conc 33.6 % (30-36); Mean Corpuscular Hemoglobin 31.5 PG (26-34); Monocytes Absolute Auto 300 /uL (0-900); Monocytes Percent Auto 6.5 % (3-14); Neutrophils Absolute Auto 4000 /uL (1500-7000); Neutrophils Percent Auto 75.6 % (50-75); Platelet Count 344 X10^3/uL (150-400); Red Blood Cell Count 4.14 X10^6/uL (4.0-5.2); Red Cell Distribution Width 15.3 % (11.6-14.8); White Blood Cell Count 5.3 X10^3/uL (4.5-11.0)
[2023-08-31 14:51] LABS: Alanine Aminotransferase 20 IU/L (<35); Albumin 4.6 g/dL (3.5-5.0); Albumin Globulin Ratio 1.5 (1.0-2.8); Alkaline Phosphatase 61 U/L (38-126); Aspartate Aminotransferase 26 IU/L (14-36); BUN Creatinine Ratio 16.4 (6-22); Bilirubin Total 0.6 mg/dL (0.2-1.3); Blood Urea Nitrogen 11 mg/dL (7-17); Calcium 9.8 mg/dL (8.4-10.2); Carbon Dioxide 33 mmol/L (22-32); Chloride 95 mmol/L (98-107); Estimated Glomerular Filt Rate > 60 mL/min (>60); Glucose 98 mg/dL (80-110); HEMOLYSIS < 15 (0-50); Potassium 3.5 mmol/L (3.4-5.1); Sodium 135 mmol/L (137-145); Total Protein 7.6 g/dL (6.3-8.2)
== END ==
PROVIDERS: PCP Student in an Organized Health Care Education/Training Program
DX: E87.1 Hypo-osmolality and hyponatremia (principal); I10 Essential (primary) hypertension; U07.1 COVID-19
CPT/HCPCS: 36415; 80053; 85025

== ENCOUNTER → 2023-10-26 09:55 | Outpatient (CLI) | payer MEDICARE, BC, SELFPAY ==
[2023-10-26 10:43] LABS: Add Manual Diff / Slide Review NO; Basophils Absolute Auto 0 /uL (0-100); Basophils Percent Auto 0.8 % (0-2); Eosinophils Absolute Auto 0 /uL (0-450); Eosinophils Percent Auto 0.9 % (2-4); Hematocrit 37.5 % (36-46); Hemoglobin 12.6 g/dL (12.0-16.0); Lymphocytes Absolute Auto 1100 /uL (1100-4500); Lymphocytes Percent Auto 21.4 % (25-40); Mean Corpuscular HGB Conc 33.6 % (30-36); Mean Corpuscular Hemoglobin 31.8 PG (26-34); Mean Corpuscular Volume 94.6 fL (80-100); Monocytes Absolute Auto 400 /uL (0-900); Monocytes Percent Auto 7.5 % (3-14); Neutrophils Absolute Auto 3600 /uL (1500-7000); Neutrophils Percent Auto 69.4 % (50-75); Platelet Count 364 X10^3/uL (150-400); Red Blood Cell Count 3.96 X10^6/uL (4.0-5.2); Red Cell Distribution Width 13.8 % (11.6-14.8); White Blood Cell Count 5.2 X10^3/uL (4.5-11.0)
[2023-10-26 11:03] LABS: BUN Creatinine Ratio 16.7 (6-22); Blood Urea Nitrogen 12 mg/dL (7-17); Calcium 9.3 mg/dL (8.4-10.2); Carbon Dioxide 32 mmol/L (22-32); Chloride 93 mmol/L (98-107); Estimated Glomerular Filt Rate > 60 mL/min (>60); Glucose 98 mg/dL (80-110); HEMOLYSIS < 15 (0-50); Potassium 3.5 mmol/L (3.4-5.1); Sodium 130 mmol/L (137-145)
[2023-10-26 11:09] LABS: Creatinine Urine Random 54.1 mg/dL; Protein (Total) Urine Random 8 mg/dL (0-12); Protein Creatinine Ratio Urine 0.14 GRAM/24H
[2023-10-26 11:13] LABS: Microalbumin Urine Random 0.6 mg/dL (0-1.6)
== END ==
PROVIDERS: PCP Student in an Organized Health Care Education/Training Program; Referring Provider Internal Medicine Nephrology; Visit Provider Internal Medicine Nephrology
DX: I10 Essential (primary) hypertension (principal)
CPT/HCPCS: 36415; 80048; 82043; 82570; 83735; 84156; 85025

== ENCOUNTER → 2024-02-18 12:49 | Outpatient (CLI) | payer MEDICARE, BC, SELFPAY ==
[2024-02-18 14:21] LABS: BUN Creatinine Ratio 19.5 (6-22); Blood Urea Nitrogen 15 mg/dL (7-17); Calcium 9.3 mg/dL (8.4-10.2); Carbon Dioxide 33 mmol/L (22-32); Chloride 97 mmol/L (98-107); Estimated Glomerular Filt Rate > 60 mL/min (>60); Glucose 84 mg/dL (80-110); HEMOLYSIS < 15 (0-50); Potassium 3.9 mmol/L (3.4-5.1); Sodium 134 mmol/L (137-145)
== END ==
LOC: LAB 12:52
PROVIDERS: PCP Student in an Organized Health Care Education/Training Program; Referring Provider Internal Medicine Nephrology; Visit Provider Internal Medicine Nephrology
DX: I10 Essential (primary) hypertension (principal)
CPT/HCPCS: 36415; 80048

== ENCOUNTER → 2024-07-20 12:11 | Outpatient (CLI) | payer MEDICARE, BC, SELFPAY ==
--- NOTE | 2024-07-20 12:13 | DI.RAD.S_ITS ---
PROCEDURE: XR CERVICAL SPINE 2V OR 3V INDICATIONS: Neck pain TECHNIQUE: 3 view(s) of the cervical spine were acquired. COMPARISON: None. FINDINGS: Bones: No fractures or dislocations to the T1 level. The lateral masses of C1 appear intact on the odontoid view. No suspicious bony lesions. 6 millimeter anterolisthesis of C4 on C5. Moderate disc height loss at C4-5, C5-6, C6-7. Mild disc height loss at remaining levels. Diffuse facet arthrosis, greatest on the left side at C3-4, C4-5. Soft tissues: No prevertebral soft tissue swelling. IMPRESSION: Grade 1 anterolisthesis of C4 on C5, probably degenerative. Mild to moderate, multilevel degenerative disc disease and diffuse facet arthrosis. Dictated by: Jimy Arauz M.D. on 07/20/2024 at 16:40 Approved by: Jimy Arauz M.D. on 07/20/2024 at 16:41
== END ==
LOC: RAD 12:12
PROVIDERS: PCP Student in an Organized Health Care Education/Training Program; Referring Provider Student in an Organized Health Care Education/Training Program; Visit Provider Student in an Organized Health Care Education/Training Program
DX: M47.812 Spondylosis without myelopathy or radiculopathy, cervical region (principal); M50.321 Other cervical disc degeneration at C4-C5 level; M43.12 Spondylolisthesis, cervical region
CPT/HCPCS: 72040

== ENCOUNTER → 2024-11-17 12:41 | Outpatient (CLI) | payer MEDICARE, BC, SELFPAY ==
[2024-11-17 13:05] LABS: Add Manual Diff / Slide Review NO; Basophils Absolute Auto 0 /uL (0-100); Eosinophils Absolute Auto 0 /uL (0-450); Eosinophils Percent Auto 0.4 % (2-4); Hemoglobin 12.8 g/dL (12.0-16.0); Lymphocytes Absolute Auto 1000 /uL (1100-4500); Lymphocytes Percent Auto 21.8 % (25-40); Mean Corpuscular HGB Conc 32.9 % (30-36); Mean Corpuscular Hemoglobin 31.3 PG (26-34); Mean Corpuscular Volume 94.9 fL (80-100); Monocytes Absolute Auto 300 /uL (0-900); Monocytes Percent Auto 7.6 % (3-14); Neutrophils Absolute Auto 3100 /uL (1500-7000); Neutrophils Percent Auto 69.2 % (50-75); Platelet Count 337 X10^3/uL (150-400); Red Blood Cell Count 4.11 X10^6/uL (4.0-5.2); Red Cell Distribution Width 13.6 % (11.6-14.8); White Blood Cell Count 4.5 X10^3/uL (4.5-11.0)
[2024-11-17 13:23] LABS: BUN Creatinine Ratio 20.3 (6-22); Blood Urea Nitrogen 15 mg/dL (7-17); Calcium 9.6 mg/dL (8.4-10.2); Carbon Dioxide 34 mmol/L (22-32); Chloride 97 mmol/L (98-107); Estimated Glomerular Filt Rate > 60 mL/min (>60); Glucose 101 mg/dL (80-110); HEMOLYSIS < 15 (0-50); Potassium 4.6 mmol/L (3.4-5.1); Sodium 136 mmol/L (137-145)
[2024-11-17 14:56] LABS: Microalbumin Urine Random 0.8 mg/dL (0-1.6)
[2024-11-17 15:06] LABS: Creatinine Urine Random 62.65 mg/dL
== END ==
LOC: LAB 12:42
PROVIDERS: PCP Student in an Organized Health Care Education/Training Program; Referring Provider Student in an Organized Health Care Education/Training Program; Visit Provider Student in an Organized Health Care Education/Training Program
DX: I10 Essential (primary) hypertension (principal)
CPT/HCPCS: 36415; 80048; 82043; 82570; 85025

== ENCOUNTER 2025-08-25 10:28 | Emergency (ER) | payer MEDICARE, BC, SELFPAY ==
[2025-08-25 10:47] VITALS: BP 219/98; PULSE 89; RESP 14; TEMP 37.1; O2SAT 99; BMI 18.7
--- NOTE | 2025-08-25 11:30 | ED_ITS ---
HPI - Fall <Nya Du PA-C - Last Filed: 08/25/25 14:27> General Chief Complaint: Fall Stated Complaint: Fell, pain on lower right back side Time Seen by Provider: 08/25/25 11:04 Source: patient Mode of arrival: Ambulatory History of Present Illness HPI Narrative: Ms. Casas is a very pleasant 85-year-old female with a past medical history of hypertension, hyperlipidemia, hypoaldosteronism, DDD who presents to the emergency department with her for a fall last night causing tailbone pain. The witnessed this fall. Patient was attempting to get into her bed which is quite high by using a small stool but while standing on the stool she fell backwards landing directly on her buttocks. Patient did not fall back and hit her head. She states that she is actually currently healing from a concussion so she made sure to not hit her head. She is now having pain on her tailbone especially with sitting and leaning back. Reports some mild soreness in the right trapezius region as well. There was no dizziness lightheadedness or symptoms that precipitated the fall, she accidentally stumbled on the stool. She denies chest pain, shortness of breath, wounds, bruising, abdominal pain, ne ck pain, headache, back pain. Pain is focal over the sacrum, no bruising or wounds in the area. She did not take her 10:00 a.m. hydrocodone or her blood pressure medication yet today. Related Data Home Medications ?Medication ?Instructions ?Recorded ?Confirmed acetaminophen 500 mg capsule 500 mg PO Q6H PRN 8 08/10/25 cetirizine 10 mg tablet (Zyrtec) 10 mg PO DAILY PRN heidi chery symptoms 06/18/23 08/10/25 Previous Rx's ?Medication ?Instructions ?Recorded olmesartan 20 mg tablet 20 mg PO DAILY #90 tabs 09/30 08/23 omeprazole 20 mg capsule,delayed 20 mg PO BID #180 cap s 11/22/24 release fludrocortisone 0.1 mg tablet 0.1 mg PO .every other d ay #90 tabs 05/04/25 chlorthalidone 25 mg tablet 25 mg PO 3XW #30 tabs 05/31 04/23 hydrocodone 5 mg-acetaminophen 325 1 tab PO BID PRN kye in #60 tabs 08/10/25 mg tablet hydrocodone 5 mg-acetaminophen 325 1 tab PO BID PRN pa in #60 tabs 08/10/25 mg tablet hydrocodone 5 mg-acetaminophen 325 1 tab PO BID PRN pa in #60 tabs 08/10/25 mg tablet hydrocodone 7.5 mg-acetaminophen 1 tab PO BEDTIME PRN pain #30 tabs 08/10/25 325 mg tablet hydrocodone 7.5 mg-acetaminophen 1 tab PO BEDTIME PRN pain #30 tabs 08/10/25 325 mg tablet hydrocodone 7.5 mg-acetaminophen 1 tab PO BEDTIME PRN pain #30 tabs 08/10/25 325 mg tablet simvastatin 40 mg tablet 40 mg PO DAILY #90 tabs 08/01 08/24 Allergies Allergy/AdvReac Type Severity Reaction Status Date / Time amlodipine Allergy Mild SWELLING Verified 08/25/25 10:50 IN LEGS codeine (CODEINE) Allergy Mild confusion Verified 08/25/25 10:50 sucralfate AdvReac Intermediate vomiting,na Verified 08/25/25 10:50 usea Anesthetics - Amide Type - AdvReac Mild VOMITING Verified 08/25/25 10:50 Select A (Anesthetics - Amide Type) Anesthetics - Ingrid Type- AdvReac Mild VOMITING Verified 08/25/25 10:50 Parabens (Anesthetics - Ingrid Type) diphtheria,pertussis AdvReac FEVER, Verified 08/25/25 10:50 (acellular),te (From [facility]ILLS, Adacel(Tdap DIARRHEA, Adolesn/Adult)(PF)) TERRIBLE HEADACHE Review of Systems <Nya Du PA-C - Last Filed: 08/25/25 14:27> Review of Systems ROS Unobtainable: All systems reviewed & are unremarkable except as noted in HPI and below Patient History <Nya Du PA-C - Last Filed: 08/25/25 14:27> Medical History Arthritis, climacteric, multiple joints Osteoporosis Hearing loss (2009) Osteopenia (2005) Lumbosacral radiculopathy due to degenerative joint disease of spine (2015) Chronic back pain (1984) Hemorrhoids (1964) Adrenal insufficiency Hyperparathyroidism (2013) Hyperthyroidism (2013) Fibromyalgia (1984) Hypertension (1984) Hyperlipidemia Measles (1948) Chicken pox (1946) Hayfever (1965) Migraines (1953) Hyporeninemic hypoaldosteronism Hyperparathyroidism (02/11/16) Surgical History History of eye surgery (2006) History of eye surgery (2007) Anesthesia complication H/O parathyroidectomy (~2013) Status post hysterectomy (1981) Family History Brother Age: 64 Heart disease Father Hypertension High cholesterol Mother Mental health problem Osteopenia Alzheimer's disease Sister Age: 82 Heart disease High cholesterol Osteopenia Heart valve problem Grandfather No problems noted. Grandmother No problems noted. Grandfather No problems noted. Grandmother MVA (motor vehicle accident) Sister History of back problems Sister History of back problems Social History marital status: household members: spouse lives independently: Yes education level: college occupational status: other alcohol intake: never substance use type: does not use alcohol intake frequency: other Exam <Nya Du PA-C - Last Filed: 08/25/25 14:27> Narrative Exam Narrative: GENERAL: 85 year old patient appears stated age. Frail elderly patient, in no acute distress. HEAD: Atraumatic. Normocephalic. EYES: No scleral icterus. No injection or drainage. ENT: Nose without bleeding, purulent drainage. NECK: Trachea midline. Cervical ROM intact. No midline cervical tenderness. CARDIOVASCULAR: Regular rate and rhythm. RESPIRATORY: ?Nonlabored respirations. ?Speaking in clear, full sentences. ?Clear to auscultation. Breath sounds equal bilaterally. No wheezes, rales, or rhonchi. ? EXTREMITIES: No LE edema. BACK: Nontender without deformity or crepitance. No flank tenderness. Patient does have focal tenderness to palpation over the coccyx region, there is no bruising or deformities. NEURO: AOx3. ?She is hard of hearing and does rely on to answer some questions. Clear speech. ?Stands and ambulates independently. Moves all 4 extremities appropriately. SKIN: No rash or erythema of visible areas Initial Vital Signs Initial Vital Signs: Vital Signs Temperature 98.7 F 08/25/25 10:47 Pulse Rate 89 08/25/25 10:47 Respiratory Rate 14 08/25/25 10:47 Blood Pressure 219/98 H 08/25/25 10:47 Pulse Oximetry 99 08/25/25 10:47 Oxygen Delivery Method Room Air 08/25/25 10:47 <Dar Carbajal MD - Last Filed: 08/29/25 07:38> Initial Vital Signs Initial Vital Signs: Vital Signs Temperature 98.7 F 08/25/25 10:47 Pulse Rate 89 08/25/25 10:47 Respiratory Rate 14 08/25/25 10:47 Blood Pressure 219/98 H 08/25/25 10:47 Pulse Oximetry 99 08/25/25 10:47 Oxygen Delivery Method Room Air 08/25/25 10:47 Course <Nya Du PA-C - Last Filed: 08/25/25 14:27> Orders Ordered: Discontinued Medications Hydrocodone Bitart/Acetaminophen (Hydrocodone/Acet 5/325 Tablet) 1 tab PO NOW ONE Stop: 08/25/25 11:40 Last Admin: 08/25/25 12:25 Dose: 1 tab Documented By: SHAYNE Losartan Potassium (Losartan 50 Mg Tablet) 50 mg PO NOW ONE Stop: 08/25/25 11:40 Last Admin: 08/25/25 12:40 Dose: 50 mg Documented By: SHAYNE Vital Signs Vital signs: Vital Signs - 8 hr 08/25/25 10:47 08/25/25 12:27 08/25/25 12:40 Temperature 98.7 F Pulse Rate 89 85 85 Respiratory Rate 14 18 Blood Pressure 219/98 H 205/93 H 205/93 H Pulse Oximetry 99 100 Oxygen Delivery Method Room Air Room Air 08/25/25 14:12 Temperature Pulse Rate 77 Respiratory Rate 18 Blood Pressure 183/81 H Pulse Oximetry 98 Oxygen Delivery Method Room Air <Dar Carbajal MD - Last Filed: 08/29/25 07:38> Orders Ordered: Discontinued Medications Hydrocodone Bitart/Acetaminophen (Hydrocodone/Acet 5/325 Tablet) 1 tab PO NOW ONE Stop: 08/25/25 11:40 Last Admin: 08/25/25 12:25 Dose: 1 tab Documented By: SB Losartan Potassium (Losartan 50 Mg Tablet) 50 mg PO NOW ONE Stop: 08/25/25 11:40 Last Admin: 08/25/25 12:40 Dose: 50 mg Documented By: SHAYNE Vital Signs Vital signs: Vital Signs - 8 hr 08/25/25 10:47 08/25/25 12:27 08/25/25 12:40 Temperature 98.7 F Pulse Rate 89 85 85 Respiratory Rate 14 18 Blood Pressure 219/98 H 205/93 H 205/93 H Pulse Oximetry 99 100 Oxygen Delivery Method Room Air Room Air 08/25/25 14:12 Temperature Pulse Rate 77 Respiratory Rate 18 Blood Pressure 183/81 H Pulse Oximetry 98 Oxygen Delivery Method Room Air MDM - Fall <Nya Josh Du PA-C - Last Filed: 08/25/25 14:27> Medical Records Attestation: I reviewed the patient's medical records. Imaging Data XR Sacrum Coccyx: Radiologist's Impression: PROCEDURE: XR SACRUM COCCYX MIN 2V INDICATIONS: fall directly on tailbone w/ pain TECHNIQUE: 3 views of the sacrum and coccyx acquired. COMPARISON: None. FINDINGS: Bones: There appears to be anterior displacement of the coccyx on lateral view compared to the sacrum. No suspicious bony lesions. Soft tissues: Visualized bowel gas pattern is normal. No suspicious soft tissue densities. IMPRESSION: There appears to be anterior displacement the coccyx concerning for displaced fracture. Dictated by: Morris Tirado M.D. on 08/25/2025 at 12:57 Approved by: Morris Tirado M.D. on 08/25/2025 at 12:59 [facility] Narrative Medical decision making narrative: 85-year-old female with a past medical history of hypertension, hyperlipidemia, hypoaldosteronism, DDD who presents to the emergency department with her for a fall last night causing tailbone pain. Differential diagnosis includes but isn't limited to sacral fracture, coccyx fracture, tailbone contusion, sprain, strain, etc. On exam patient is in no acute distress, nontoxic appearing, vital signs appropriate except for elevated blood pressure. She has not experiencing any chest pain or shortness of breath and she did not take her blood pressure medication this morning, we do not carry olmesartan 20mg in this hospital however I spoke with Jacob from pharmacy and losartan 50 mg is the equivalent dosing. She has focal tenderness to palpation and subjective pain on the coccyx region after falling directly on the buttocks. No back pain, chest pain, abdominal pain or extremity pain. No open wounds, no blood thinners, no head strike. We will obtain imaging of the sacrum and coccyx, treat with home dose hydrocodone 5 mg. X-ray reveals anterior displaced meant of the coccyx concerning for a displaced fracture. Reviewed results with ER attending physician Dr. Carbajal. Discussed supportive care with the patient including using donut or wedge pillow, pain control. Her pain has improved significantly during ED stay, she is ambulatory. Discussed ER return precautions and follow up with PCP/ortho. Patient verbalized understanding of all information agreeable with the plan. She is ambulatory and stable for discharge home, blood pressure improved. Discharge Plan Departure Patient Disposition: Home Clinical Impression: Acute coccygeal pain, Elevated blood pressure reading Fall Qualifiers: Encounter type: initial encounter Qualified Code(s): W19.XXXA - Unspecified fall, initial encounter Closed fracture of coccyx Qualifiers: Encounter type: initial encounter Qualified Code(s): S32.2XXA - Fracture of coccyx, initial encounter for closed fracture Instructions: DI for Coccyx Fracture Activity Restrictions/Additional Instructions: Dear Ms. Casas, Thank you for coming to the emergency department. Today you were evaluated for tailbone pain after fall. X-ray did show that you broke your coccyx which is tailbone. Please use your prescribed hydrocodone in addition to acetaminophen/Tylenol as needed for pain. Applying ice or heat to the tailbone may also be helpful. When sitting, use a donut pillow or a wedge pillow for comfort. Please follow up with your primary care doctor or [facility] for further management. Please follow up with your primary care doctor within the next 2-3 days for ER follow-up. (If you do not have a PCP you can call [phone]. ?to schedule an appointment with an [facility] Primary Care Provider) IF YOU DEVELOP ANY NEW OR WORSENING SYMPTOMS, RETURN TO THE ER! Please read the attached instructions, they highlight more specific treatments and interventions for you at home. Thank you for letting me participate in your care, Nya Du PA-C Prescriptions: No Action cetirizine [Zyrtec] 10 mg tablet 10 mg PO DAILY PRN (Reason: allergy symptoms) fludrocortisone 0.1 mg tablet 0.1 mg PO .every other day Qty: 90 3RF hydrocodone-acetaminophen 5-325 mg tablet 1 tab PO BID PRN (Reason: pain) Qty: 60 0RF hydrocodone-acetaminophen 5-325 mg tablet 1 tab PO BID PRN (Reason: pain) Qty: 60 0RF hydrocodone-acetaminophen 5-325 mg tablet 1 tab PO BID PRN (Reason: pain) Qty: 60 0RF hydrocodone-acetaminophen 7.5-325 mg tablet 1 tab PO BEDTIME PRN (Reason: pain) Qty: 30 0RF hydrocodone-acetaminophen 7.5-325 mg tablet 1 tab PO BEDTIME PRN (Reason: pain) Qty: 30 0RF hydrocodone-acetaminophen 7.5-325 mg tablet 1 tab PO BEDTIME PRN (Reason: pain) Qty: 30 0RF olmesartan 20 mg tablet 20 mg PO DAILY Qty: 90 3RF omeprazole 20 mg capsule,delayed release(DR/EC) 20 mg PO BID Qty: 180 3RF chlorthalidone 25 mg tablet 25 mg PO 3XW Qty: 30 5RF simvastatin 40 mg tablet 40 mg PO DAILY Qty: 90 3RF acetaminophen 500 mg capsule 500 mg PO Q6H PRN Referrals: Foreign Lozano MD [Physician, Orthopedic Surgery] Referral Note: coccyx fracture Kristan Carlin MD [Primary Care Provider, Family Practice] Stand Alone Forms: Patient Portal/API ED Sign-out <Dar Carbajal MD - Last Filed: 08/29/25 07:38> [facility]: I was immediately available in the department for consultation. ?This documentation has been reviewed and I agree with assessment and plan. Supervised by Dar Carbajal MD
--- NOTE | 2025-08-25 11:39 | DI.RAD.S_ITS ---
PROCEDURE: XR SACRUM COCCYX MIN 2V INDICATIONS: fall directly on tailbone w/ pain TECHNIQUE: 3 views of the sacrum and coccyx acquired. COMPARISON: None. FINDINGS: Bones: There appears to be anterior displacement of the coccyx on lateral view compared to the sacrum. No suspicious bony lesions. Soft tissues: Visualized bowel gas pattern is normal. No suspicious soft tissue densities. IMPRESSION: There appears to be anterior displacement the coccyx concerning for displaced fracture. Dictated by: Morris Tirado M.D. on 08/25/2025 at 12:57 Approved by: Morris Tirado M.D. on 08/25/2025 at 12:59
[2025-08-25 12:27] VITALS: BP 205/93; PULSE 85; RESP 18; O2SAT 100
--- NOTE | 2025-08-25 12:29 | PC.NURSE ---
Losartan unavailable at this [facility] location. Pharmacy called and will be bringing medication for patient.
[2025-08-25 12:40] VITALS: BP 205/93; PULSE 85
[2025-08-25] MEDS: LOSARTAN 50 MG TABLET PO (12:40)
[2025-08-25 14:12] VITALS: BP 183/81; PULSE 77; RESP 18; O2SAT 98
== END 2025-08-25 13:44 | disposition home or self-care (01) ==
PROVIDERS: Emergency Provider Physician Assistant; PCP Student in an Organized Health Care Education/Training Program
DX: S32.2XXA Fracture of coccyx, initial encounter for closed fracture (principal); I10 Essential (primary) hypertension; W08.XXXA Fall from other furniture, initial encounter
CPT/HCPCS: 72220; 99283

== ENCOUNTER 2025-08-29 14:00 | Emergency (ER) | payer MEDICARE, BC, SELFPAY ==
[2025-08-29] VITALS (11 sets, daily range): BP systolic 184–221; BP diastolic 77–146; PULSE 75–88; RESP 20; TEMP 37; O2SAT 96–99; BMI 18.7
--- NOTE | 2025-08-29 15:14 | ED_ITS ---
HPI - General Adult General Chief complaint: Hypertension Stated complaint: Still having high blood pressure ,fall, headaches Time Seen by Provider: 08/29/25 15:13 Source: patient Mode of arrival: Ambulatory History of Present Illness HPI narrative: 85-year-old female patient with a history of hypertension, dyslipidemia, hypoaldosteronism, migraines and fibromyalgia who complains of elevated blood pressure. Patient was seen here 4 days ago for a fall that resulted in a coccygeal fracture but no head trauma. She was noted to have elevated blood pressure at that point and was told to follow up with her provider which she did just prior to coming to the ER. She is not monitor blood pressure at home. Her blood pressure in the office today was 199/90. Patient has had a slight headache since her fall which comes and goes. Also slight right sided neck pain which is not new but it started with the fall. No other complaint. No chest pain or illness. Patient has not taken her olmesartan today. Related Data Home Medications ?Medication ?Instructions ?Recorded ?Confirmed acetaminophen 500 mg capsule 500 mg PO Q6H PRN 8 08/29/25 cetirizine 10 mg tablet (Zyrtec) 10 mg PO DAILY PRN al lergy symptoms 06/18/23 08/29/25 Previous Rx's ?Medication ?Instructions ?Recorded olmesartan 20 mg tablet 20 mg PO DAILY #90 tabs 09/30 08/23 omeprazole 20 mg capsule,delayed 20 mg PO BID #180 cap s 11/22/24 release fludrocortisone 0.1 mg tablet 0.1 mg PO .every other d ay #90 tabs 05/04/25 chlorthalidone 25 mg tablet 25 mg PO 3XW #30 tabs 05/31 04/23 hydrocodone 5 mg-acetaminophen 325 1 tab PO BID PRN pa in #60 tabs 08/10/25 mg tablet hydrocodone 5 mg-acetaminophen 325 1 tab PO BID PRN pa in #60 tabs 08/10/25 mg tablet hydrocodone 5 mg-acetaminophen 325 1 tab PO BID PRN pa in #60 tabs 08/10/25 mg tablet hydrocodone 7.5 mg-acetaminophen 1 tab PO BEDTIME PRN pain #30 tabs 08/10/25 325 mg tablet hydrocodone 7.5 mg-acetaminophen 1 tab PO BEDTIME PRN pain #30 tabs 08/10/25 325 mg tablet hydrocodone 7.5 mg-acetaminophen 1 tab PO BEDTIME PRN pain #30 tabs 08/10/25 325 mg tablet simvastatin 40 mg tablet 40 mg PO DAILY #90 tabs 08/01 08/24 tramadol 50 mg tablet 50 mg PO BID PRN pain #14 ta bs 08/29/25 Allergies Allergy/AdvReac Type Severity Reaction Status Date / Time amlodipine Allergy Mild SWELLING Verified 08/29/25 13:38 IN LEGS codeine (CODEINE) Allergy Mild confusion Verified 08/29/25 13:38 sucralfate AdvReac Intermediate vomiting,na Verified 08/29/25 13:38 usea Anesthetics - Amide Type - AdvReac Mild VOMITING Verified 08/29/25 13:38 Select A (Anesthetics - Amide Type) Anesthetics - Ingrid Type- AdvReac Mild VOMITING Verified 08/29/25 13:38 Parabens (Anesthetics - Ingrid Type) diphtheria,pertussis AdvReac FEVER, Verified 08/29/25 13:38 (acellular),te (From [facility], Adacel(Tdap DIARRHEA, Adolesn/Adult)(PF)) TERRIBLE HEADACHE Review of Systems Review of Systems ROS Unobtainable: All systems reviewed & are unremarkable except as noted in HPI and below Cardiovascular Cardiovascular: Reports as per HPI Musculoskeletal Musculoskeletal: Reports as per HPI Neurologic Neurologic: Reports as per HPI Patient History Medical History Arthritis, climacteric, multiple joints Osteoporosis Hearing loss (2009) Osteopenia (2005) Lumbosacral radiculopathy due to degenerative joint disease of spine (2015) Chronic back pain (1984) Hemorrhoids (1964) Adrenal insufficiency Hyperparathyroidism (2013) Hyperthyroidism (2013) Fibromyalgia (1984) Hypertension (1984) Hyperlipidemia Measles (1947) Chicken pox (1946) Hayfever (1965) Migraines (1953) Hyporeninemic hypoaldosteronism Hyperparathyroidism (02/11/16) Surgical History History of eye surgery (2006) History of eye surgery (2007) Anesthesia complication H/O parathyroidectomy (~2013) Status post hysterectomy (1981) Family History Brother Age: 64 Heart disease Father Hypertension High cholesterol Mother Mental health problem Osteopenia Alzheimer's disease Sister Age: 82 Heart disease High cholesterol Osteopenia Heart valve problem Grandfather No problems noted. Grandmother No problems noted. Grandfather No problems noted. Grandmother MVA (motor vehicle accident) Sister History of back problems Sister History of back problems Social History marital status: household members: spouse lives independently: Yes education level: college occupational status: other Smoking Status: Never smoker alcohol intake: never substance use type: does not use Smoking Status: Never smoker alcohol intake frequency: other Exam Narrative Exam Narrative: General: Alert and conversant. No distress. Appears well nourished and well hydrated Craniofacial: No evidence of trauma. Nontender and no swelling. Eyes: PERRLA EOMI conjunctiva clear HEENT: Oropharynx clear with no swelling, exudate or asymmetry of the pharynx. Nares clear. No sinus tenderness Neck: No tenderness or adenopathy. No meningismus. No JVD Lungs: Clear to auscultation with good air movement. No wheezing, rales or rhonchi. No respiratory distress Cardiac: Regular rate and rhythm with no appreciable murmur or gallop Abdomen: Soft, nontender with no distention or masses. Normal bowel sounds. No rebound or guarding Musculoskeletal: Exam of the extremities, axial spine and ribcage reveals no deformity, bony tenderness or swelling. Range of motion intact Neuro: Alert and oriented. Cranial nerves, motor, sensory and cerebellar all grossly intact. No focal deficit Skin: Warm and normal color. No rashes Psychological: Normal affect and interaction. No evidence of delusion or psychosis. Normal mood. Initial Vital Signs Initial Vital Signs: Vital Signs Temperature 98.6 F 08/29/25 14:03 Pulse Rate 88 08/29/25 14:03 Respiratory Rate 20 08/29/25 14:03 Blood Pressure 205/98 H 08/29/25 14:03 Pulse Oximetry 96 08/29/25 14:03 Oxygen Delivery Method Room Air 08/29/25 14:03 Course Course Course Narrative: 17:00 Lab work unremarkable and reassuring. Patient is feeling well. Most recent blood pressure is 193/ 95. Orders Ordered: ED Orders 08/29/25 15:00 BMP [Basic Metabolic Panel] Stat CBC Auto Diff [Complete Blood Count AUTO DIFF] Stat Vital Signs Vital signs: Vital Signs - 8 hr 08/29/25 14:24 08/29/25 14:26 08/29/25 14:26 Pulse Rate 82 79 Blood Pressure 200/90 H Pulse Oximetry 96 99 08/29/25 14:30 08/29/25 14:30 08/29/25 15:00 Pulse Rate 78 Blood Pressure 184/77 H 199/85 H Pulse Oximetry 99 08/29/25 15:00 08/29/25 15:30 08/29/25 15:30 Pulse Rate 78 87 Blood Pressure 221/98 H Pulse Oximetry 99 99 08/29/25 15:37 08/29/25 15:37 08/29/25 16:00 Pulse Rate 77 Blood Pressure 201/93 H 186/107 H Pulse Oximetry 99 08/29/25 16:00 08/29/25 16:30 08/29/25 16:30 Pulse Rate 77 76 Blood Pressure 193/88 H Pulse Oximetry 99 99 08/29/25 16:51 08/29/25 17:00 Pulse Rate 75 Blood Pressure 199/146 H Pulse Oximetry 98 Medical Decision Making Medical Records Medical records reviewed: Yes I reviewed the patient's medical records. Lab Data Lab results reviewed: Yes I reviewed the patient's lab results. 08/29/25 15:00 08/29/25 15:00 Labs: Lab Results 08/29/25 Range/Units 15:00 WBC 4.8 (4.5-11.0) X10^3/uL RBC 3.92 L (4.0-5.2) X10^6/uL Hgb 12.4 (12.0-16.0) g/dL Hct 36.4 (36-46) % MCV 92.8 (80-100) fL MCH 31.5 (26-34) PG MCHC 34.0 (30-36) % RDW 14.3 (11.6-14.8) % Plt Count 298 (150-400) X10^3/uL Neut % (Auto) 66.4 (50-75) % Lymph % (Auto) 23.3 L (25-40) % [place] % (Auto) 8.0 (3-14) % Eos % (Auto) 1.2 L (2-4) % Baso % (Auto) 1.1 (0-2) % Neut # (Auto) 3200 (6480-6090) /uL Lymph # (Auto) 1100 (7356-1816) /uL [place] # (Auto) 400 (0-900) /uL Eos # (Auto) 100 (0-450) /uL Baso # (Auto) 100 (0-100) /uL Sodium 133 L (137-145) mmol/L Potassium 3.8 (3.4-5.1) mmol/L Chloride 96 L (98-107) mmol/L Carbon Dioxide 30 (22-32) mmol/L BUN 12 (7-17) mg/dL Creatinine 0.66 (0.52-1.04) mg/dL Estimated GFR > 60 (>60) mL/min BUN/Creatinine Ratio 18.2 (6-22) Glucose 92 (70-99) mg/dL Calcium 9.3 (8.4-10.2) mg/dL MDM Narrative Medical decision making narrative: Patient has asymptomatic severe hypertension which improved somewhat with taking her own medication here in the ER. I did not believe she needs IV medication which may cause more harm than good bring her pressure down too rapidly. Plan will be to continue her current medications but increase the chlorthalidone to everyday as set of 3 times a week. Monitor blood pressure and follow up with her doctor within the next 3 days for reassessment. Return to the ER if worse Discharge Plan Departure Patient Disposition: Home Clinical Impression: Elevated blood pressure reading with diagnosis of hypertension Instructions: DI for High Blood Pressure Activity Restrictions/Additional Instructions: Plan: Increased chlorthalidone to every day instead of every other day. Continue other medications and monitor blood pressure taking at least 2 measurements a day and putting them in a log. Follow up with your doctor within 3 days to reassess blood pressure management. Return to the ER if worse Prescriptions: No Action cetirizine [Zyrtec] 10 mg tablet 10 mg PO DAILY PRN (Reason: allergy symptoms) fludrocortisone 0.1 mg tablet 0.1 mg PO .every other day Qty: 90 3RF hydrocodone-acetaminophen 5-325 mg tablet 1 tab PO BID PRN (Reason: pain) Qty: 60 0RF hydrocodone-acetaminophen 5-325 mg tablet 1 tab PO BID PRN (Reason: pain) Qty: 60 0RF hydrocodone-acetaminophen 5-325 mg tablet 1 tab PO BID PRN (Reason: pain) Qty: 60 0RF hydrocodone-acetaminophen 7.5-325 mg tablet 1 tab PO BEDTIME PRN (Reason: pain) Qty: 30 0RF hydrocodone-acetaminophen 7.5-325 mg tablet 1 tab PO BEDTIME PRN (Reason: pain) Qty: 30 0RF hydrocodone-acetaminophen 7.5-325 mg tablet 1 tab PO BEDTIME PRN (Reason: pain) Qty: 30 0RF tramadol 50 mg tablet 50 mg PO BID PRN (Reason: pain) Qty: 14 0RF Rx Instructions: To take for acute tailbone fracture. olmesartan 20 mg tablet 20 mg PO DAILY Qty: 90 3RF omeprazole 20 mg capsule,delayed release(DR/EC) 20 mg PO BID Qty: 180 3RF chlorthalidone 25 mg tablet 25 mg PO 3XW Qty: 30 5RF simvastatin 40 mg tablet 40 mg PO DAILY Qty: 90 3RF acetaminophen 500 mg capsule 500 mg PO Q6H PRN Referrals: Kristan Carlin MD [Primary Care Provider, Family Practice] Stand Alone Forms: Patient Portal/API
[2025-08-29 15:41] LABS: Add Manual Diff / Slide Review NO; Hematocrit 36.4 % (36-46); Hemoglobin 12.4 g/dL (12.0-16.0); Lymphocytes Absolute Auto 1100 /uL (1100-4500); Mean Corpuscular HGB Conc 34.0 % (30-36); Mean Corpuscular Hemoglobin 31.5 PG (26-34); Mean Corpuscular Volume 92.8 fL (80-100); Platelet Count 298 X10^3/uL (150-400)
[2025-08-29 15:48] LABS: Blood Urea Nitrogen 12 mg/dL (7-17); Calcium 9.3 mg/dL (8.4-10.2); Carbon Dioxide 30 mmol/L (22-32); Chloride 96 mmol/L (98-107); Estimated Glomerular Filt Rate > 60 mL/min (>60); Glucose 92 mg/dL (70-99); HEMOLYSIS < 15 (0-50); Potassium 3.8 mmol/L (3.4-5.1); Sodium 133 mmol/L (137-145)
== END 2025-08-29 17:22 | disposition home or self-care (01) ==
PROVIDERS: Emergency Provider Emergency Medicine; PCP Student in an Organized Health Care Education/Training Program
DX: I10 Essential (primary) hypertension (principal)
CPT/HCPCS: 80048; 85025; 99281; 99283

== ENCOUNTER → 2025-09-18 09:41 | Outpatient (CLI) | payer MEDICARE, BC, SELFPAY ==
--- NOTE | 2025-09-18 09:42 | DI.CT.S_ITS ---
PROCEDURE: CT ANGIO HEAD AND NECK INDICATIONS: TIA, Hypertension TECHNIQUE: After the administration of intravenous contrast, 1 mm thick sections acquired from the aortic arch through the [place] [facility] [place]. MIP reformats of the arterial vasculature were utilized. For radiation dose reduction, the following was used: automated exposure control, adjustment of mA and/or kV according to patient size. COMPARISON: None. FINDINGS: Image quality: Diagnostic. Cerebral CT Angiogram: Internal carotid arteries: No acute findings. Intracranial ICA are patent with no significant stenosis. No occlusion. No aneurysm. Anterior cerebral arteries: Unremarkable. No significant stenosis. No occlusion. No aneurysm. Middle cerebral arteries: Unremarkable. No significant stenosis. No occlusion. No aneurysm. Posterior cerebral arteries: Unremarkable. No significant stenosis. No occlusion. No aneurysm. Basilar artery: Unremarkable. No significant stenosis. No occlusion. No aneurysm. Vertebral arteries: Unremarkable as visualized. Dural venous sinuses: Unremarkable given phase of enhancement. Other: Arterial phase appearance of the brain parenchyma is unremarkable. Neck CT Angiogram: Internal carotid arteries: Mild atherosclerotic plaque. No significant stenosis. No dissection or occlusion. Common carotid arteries: Unremarkable. No significant stenosis. No dissection or occlusion. External carotid arteries: Unremarkable. No occlusion. Vertebral arteries: Unremarkable. No significant stenosis. No dissection or occlusion. Aortic Arch and Mediastinum: Partially visualized aortic arch unremarkable without evidence of aneurysm. Origins of the great vessels unremarkable. Other: Arterial phase soft tissues of the neck and chest are unremarkable. Incidental congenital incomplete ring of C1. [id number] degenerative disc disease and arthropathy in the cervical spine without significant central stenosis. IMPRESSION: Mild atherosclerotic plaque without significant stenosis, large branch occlusion or aneurysm in the head and neck. Approved by: Jayson Yung M.D. on 09/18/2025 at 15:09
== END ==
LOC: CT 09:42
PROVIDERS: PCP Student in an Organized Health Care Education/Training Program; Referring Provider Student in an Organized Health Care Education/Training Program; Visit Provider Student in an Organized Health Care Education/Training Program
DX: I10 Essential (primary) hypertension (principal); G45.9 Transient cerebral ischemic attack, unspecified
CPT/HCPCS: 70496; 70498; Q9967

== ENCOUNTER → 2025-10-02 14:53 | Outpatient (CLI) | payer MEDICARE, BC, SELFPAY | PROVIDERS: PCP Student in an Organized Health Care Education/Training Program; Visit Provider Student in an Organized Health Care Education/Training Program | DX: R35.0 Frequency of micturition (principal) | CPT/HCPCS: 81002; 87086 ==